=== PATIENT | female | born 1965 | race Caucasian/White ===

== ENCOUNTER 2019-02-22 07:47 | Inpatient (IN) | payer BC, MEDICAID ==
[2019-02-22] MEDS: ONDANSETRON 4 MG INJ IV ×2 (08:13→13:51)
[2019-02-22] MEDS: morphine 4 MG/ML VIAL IV (08:14)
[2019-02-22] MEDS: ACETAMINOPHEN 325 MG TAB PO (08:25)
[2019-02-22] MEDS ORDERED: CEFTRIAXONE 1 GM/50 ML (PMX) 50 ML IVPB (08:45)
[2019-02-22] MEDS: SODIUM CHLORIDE 0.9% 1L BAG IV* (08:49)
[2019-02-22] MEDS: PIPER-TAZO 3.375 GM IV (PMX) 100 ML IVPB ×3 (09:11→23:40)
[2019-02-22 09:17] LABS: ADD MAN DIFF? NO
[2019-02-22 09:19] LABS: WHITE BLOOD COUNT 13.5 10^3/ul (4.8-10.8)
[2019-02-22 09:19] LABS: BASOPHILS % 0.3 % (0.0-2.0); EOSINOPHILS % 0.3 % (0.0-7.0); HEMATOCRIT 46.4 % (37.0-47.0); HEMOGLOBIN 15.2 g/dl (12.0-16.0); LYMPHOCYTES # 2.3 10^3/ul (0.8-2.9); LYMPHOCYTES % 17.2 % (15.0-51.0); MEAN CORPUSCULAR HEMOGLOBIN 33.6 pg (29.0-33.0); MEAN CORPUSCULAR HGB CONC 32.8 g/dl (32.0-37.0); MEAN CORPUSCULAR VOLUME 102.4 fl (82.0-101.0); MEAN PLATELET VOLUME 9.1 fl (7.4-10.4); MONOCYTE # 0.6 10^3/ul (0.3-0.9); MONOCYTES % 4.2 % (0.0-11.0); NEUTROPHIL # 10.4 10^3/ul (1.6-7.5); NEUTROPHILS % 77.1 % (39.0-77.0); PLATELET COUNT 258 10^3/UL (140-415); RED BLOOD COUNT 4.53 10^6/ul (4.20-5.40); RED CELL DISTRIBUTION WIDTH 13.1 % (11.5-14.5)
[2019-02-22 09:37] LABS: ALANINE AMINOTRANSFERASE 17 IU/L (13-69); ALBUMIN 4.1 g/dl (3.3-4.9); ALBUMIN/GLOBULIN RATIO 1.32; ALKALINE PHOSPHATASE 38 IU/L (42-121); ANION GAP 8 (5-13); ASPARTATE AMINO TRANSFERASE 23 IU/L (15-46); BILIRUBIN,INDIRECT 1.1 mg/dl (0-1.1); BILIRUBIN,TOTAL 1.1 mg/dl (0.2-1.3); BLOOD UREA NITROGEN 13 mg/dl (7-20); CALCIUM 9.2 mg/dl (8.4-10.2); CARBON DIOXIDE 32 mmol/L (21-31); CHLORIDE 102 mmol/L (97-110); CREATININE 0.96 mg/dl (0.44-1.00); Estimated GFR > 60 mL/min (>60); GLUCOSE 101 mg/dl (70-220); LIPASE 126 U/L (23-300); POTASSIUM 3.8 mmol/L (3.5-5.1); SODIUM 142 mmol/L (135-144); TOTAL PROTEIN 7.2 g/dl (6.1-8.1)
[2019-02-22 09:49] LABS: TROPONIN-I < 0.012 ng/ml (0.000-0.120)
[2019-02-22] MEDS ORDERED: ACETAMINOPHEN 325 MG TAB PO (10:00)
[2019-02-22] MEDS ORDERED: ONDANSETRON 4 MG INJ IV (10:00)
[2019-02-22 11:08] LABS: LACTIC ACID 2.1 mmol/L (0.5-2.0)
[2019-02-22] MEDS ORDERED: ACETAMINOPHEN 650 MG SUPP PR (12:00)
[2019-02-22] MEDS ORDERED: NACL 0.9% 3 ML SYG IV (12:00)
[2019-02-22] MEDS: HYDROmorphONE 0.5 MG/0.5 ML SYG IV (12:27)
[2019-02-22] MEDS: SOD CHLORIDE 0.9% 1,000 ML IV ×3 (12:28→23:40)
[2019-02-22 12:45] LABS: ADD UMIC NO; UR ASCORBIC ACID NEGATIVE (NEGATIVE); UR BILIRUBIN (Dip) NEGATIVE (NEGATIVE); UR BLOOD (Dip) NEGATIVE (NEGATIVE); UR CLARITY CLEAR (CLEAR); UR COLOR STRAW (YELLOW); UR GLUCOSE (Dip) NEGATIVE (NEGATIVE); UR KETONES (Dip) NEGATIVE (NEGATIVE); UR LEUKOCYTE ESTERASE (Dip) NEGATIVE Leu/ul (NEGATIVE); UR NITRITE (Dip) NEGATIVE (NEGATIVE); UR TOTAL PROTEIN (Dip) NEGATIVE (NEGATIVE); UR UROBILINOGEN (Dip) NEGATIVE (NEGATIVE)
[2019-02-22] MEDS ORDERED: ALBUTEROL/IPRATROPIUM (NEB) 3 ML AMP HHN (13:00)
[2019-02-22] MEDS ORDERED: LORAZEPAM 2 MG INJ IV (13:00)
[2019-02-22] MEDS: MEROPENEM 1 GM/50ML(PMX) 50 ML IVPB (13:46)
[2019-02-22] MEDS: metroNIDAZOLE 500 MG/NS (PMX) 100 ML IVPB (14:52)
[2019-02-22] MEDS: NICOTINE (7 MG/24 HR) PATCH TRANSDERM (15:00)
[2019-02-22] MEDS: ACETAMINOPHEN 1000MG/100ML IV 100 ML IVPB (15:58)
[2019-02-22 16:29] LABS: LACTIC ACID 1.4 mmol/L (0.5-2.0)
[2019-02-22] MEDS: HYDROmorphONE 1 MG/ML SYG IV ×2 (17:26→22:00)
[2019-02-22 17:51] LABS: LACTIC ACID 0.8 mmol/L (0.5-2.0)
[2019-02-22 18:47] LABS: FOLATE 15.8 ng/ml (2.8-20.0)
[2019-02-22] MEDS: FAMOTIDINE 20 MG INJ IV (21:03)
[2019-02-23 00:49] LABS: LACTIC ACID 0.9 mmol/L (0.5-2.0)
[2019-02-23] MEDS: ACETAMINOPHEN 325 MG TAB PO (01:54)
[2019-02-23] MEDS ORDERED: VANCOMYCIN IV PER PHARMACY XX (02:00)
[2019-02-23 02:30] LABS: ADD MAN DIFF? NO
[2019-02-23 02:31] LABS: BASOPHIL # 0.1 10^3/ul (0.0-0.1); BASOPHILS % 0.3 % (0.0-2.0); EOSINOPHILS % 0.1 % (0.0-7.0); HEMATOCRIT 42.8 % (37.0-47.0); HEMOGLOBIN 13.8 g/dl (12.0-16.0); LYMPHOCYTES # 1.5 10^3/ul (0.8-2.9); LYMPHOCYTES % 7.8 % (15.0-51.0); MEAN CORPUSCULAR HEMOGLOBIN 33.2 pg (29.0-33.0); MEAN CORPUSCULAR HGB CONC 32.2 g/dl (32.0-37.0); MEAN CORPUSCULAR VOLUME 102.9 fl (82.0-101.0); MEAN PLATELET VOLUME 8.8 fl (7.4-10.4); MONOCYTE # 0.8 10^3/ul (0.3-0.9); MONOCYTES % 4.4 % (0.0-11.0); NEUTROPHIL # 16.6 10^3/ul (1.6-7.5); NEUTROPHILS % 86.5 % (39.0-77.0); PLATELET COUNT 210 10^3/UL (140-415); RED BLOOD COUNT 4.16 10^6/ul (4.20-5.40); RED CELL DISTRIBUTION WIDTH 13.2 % (11.5-14.5)
[2019-02-23 02:31] LABS: WHITE BLOOD COUNT 19.2 10^3/ul (4.8-10.8)
[2019-02-23 02:52] LABS: LACTIC ACID 0.9 mmol/L (0.5-2.0)
[2019-02-23 02:56] LABS: ALANINE AMINOTRANSFERASE 24 IU/L (13-69); ALBUMIN 2.9 g/dl (3.3-4.9); ALKALINE PHOSPHATASE 39 IU/L (42-121); ANION GAP 7 (5-13); ASPARTATE AMINO TRANSFERASE 19 IU/L (15-46); BILIRUBIN,INDIRECT 1.5 mg/dl (0-1.1); BILIRUBIN,TOTAL 1.5 mg/dl (0.2-1.3); BLOOD UREA NITROGEN 11 mg/dl (7-20); CALCIUM 7.8 mg/dl (8.4-10.2); CARBON DIOXIDE 24 mmol/L (21-31); CHLORIDE 106 mmol/L (97-110); CHOL/HDL RATIO 3.6 RATIO; CHOLESTEROL 145 mg/dl (100-200); CREATININE 0.81 mg/dl (0.44-1.00); Estimated GFR > 60 mL/min (>60); GLUCOSE 85 mg/dl (70-220); HDL CHOLESTEROL 40 mg/dl (37-92); LDL CHOLESTEROL,CALCULATED 87 mg/dl; MAGNESIUM 1.6 mg/dl (1.7-2.5); PHOSPHORUS 3.4 mg/dl (2.5-4.9); POTASSIUM 3.5 mmol/L (3.5-5.1); SODIUM 137 mmol/L (135-144); TOTAL PROTEIN 5.8 g/dl (6.1-8.1); TRIGLYCERIDES 89 mg/dl (0-149)
[2019-02-23] MEDS: VANCOMYCIN 1.25 GM/NS 250 ML 250 ML IVPB (02:57)
[2019-02-23 03:31] LABS: HEMOGLOBIN A1C 5.6 % (0-5.9)
[2019-02-23 03:41] LABS: PROCALCITONIN 5.08 ng/mL (0.00-0.10)
[2019-02-23] MEDS: SOD CHLORIDE 0.9% 1,000 ML IV ×4 (03:49→23:03)
[2019-02-23] MEDS: HYDROmorphONE 0.5 MG/0.5 ML SYG IV ×3 (04:31→19:04)
[2019-02-23] MEDS: PIPER-TAZO 3.375 GM IV (PMX) 100 ML IVPB ×3 (06:13→18:50)
[2019-02-23] MEDS: KETOROLAC 15 MG INJ IV (07:31)
[2019-02-23] MEDS: NICOTINE (7 MG/24 HR) PATCH TRANSDERM (08:55)
[2019-02-23] MEDS: FAMOTIDINE 20 MG INJ IV ×2 (08:55→20:18)
[2019-02-23] MEDS: predniSONE 20 MG TAB PO (08:55)
[2019-02-23] MEDS: ONDANSETRON 4 MG INJ IV ×2 (13:34→19:40)
[2019-02-23] MEDS: VANCOMYCIN 1 GM 250 ML IVPB (15:42)
[2019-02-23] MEDS: hydrALAzine 20 MG INJ IV (20:20)
[2019-02-24] MEDS: PIPER-TAZO 3.375 GM IV (PMX) 100 ML IVPB ×6 (00:10→23:52)
[2019-02-24] MEDS: ACETAMINOPHEN 325 MG TAB PO (00:17)
[2019-02-24] MEDS: VANCOMYCIN 1 GM 250 ML IVPB (03:32)
[2019-02-24 04:53] LABS: ADD MAN DIFF? NO
[2019-02-24 04:58] LABS: BASOPHIL # 0.1 10^3/ul (0.0-0.1); BASOPHILS % 0.2 % (0.0-2.0); EOSINOPHILS % 0.1 % (0.0-7.0); HEMATOCRIT 41.2 % (37.0-47.0); HEMOGLOBIN 13.1 g/dl (12.0-16.0); LYMPHOCYTES # 0.9 10^3/ul (0.8-2.9); LYMPHOCYTES % 4.2 % (15.0-51.0); MEAN CORPUSCULAR HEMOGLOBIN 33.7 pg (29.0-33.0); MEAN CORPUSCULAR HGB CONC 31.8 g/dl (32.0-37.0); MEAN CORPUSCULAR VOLUME 105.9 fl (82.0-101.0); MEAN PLATELET VOLUME 9.3 fl (7.4-10.4); MONOCYTE # 1.1 10^3/ul (0.3-0.9); MONOCYTES % 4.9 % (0.0-11.0); NEUTROPHIL # 19.8 10^3/ul (1.6-7.5); NEUTROPHILS % 88.8 % (39.0-77.0); PLATELET COUNT 140 10^3/UL (140-415); RED BLOOD COUNT 3.89 10^6/ul (4.20-5.40); RED CELL DISTRIBUTION WIDTH 13.5 % (11.5-14.5)
[2019-02-24 04:58] LABS: WHITE BLOOD COUNT 22.2 10^3/ul (4.8-10.8)
[2019-02-24 06:02] LABS: ALANINE AMINOTRANSFERASE 19 IU/L (13-69); ALBUMIN 2.8 g/dl (3.3-4.9); ALBUMIN/GLOBULIN RATIO 0.96; ALKALINE PHOSPHATASE 78 IU/L (42-121); ANION GAP 12 (5-13); ASPARTATE AMINO TRANSFERASE 28 IU/L (15-46); BILIRUBIN,INDIRECT 0.7 mg/dl (0-1.1); BILIRUBIN,TOTAL 0.7 mg/dl (0.2-1.3); BLOOD UREA NITROGEN 13 mg/dl (7-20); CARBON DIOXIDE 14 mmol/L (21-31); CHLORIDE 114 mmol/L (97-110); CREATININE 1.17 mg/dl (0.44-1.00); Estimated GFR 48 mL/min (>60); GLUCOSE 83 mg/dl (70-220); POTASSIUM 3.6 mmol/L (3.5-5.1); SODIUM 140 mmol/L (135-144); TOTAL PROTEIN 5.7 g/dl (6.1-8.1)
[2019-02-24] MEDS: METOPROLOL 25 MG TAB PO (08:15)
[2019-02-24] MEDS: HYDROmorphONE 0.5 MG/0.5 ML SYG IV ×2 (08:15→14:12)
[2019-02-24] MEDS: FAMOTIDINE 20 MG INJ IV ×2 (08:15→21:28)
[2019-02-24] MEDS: ONDANSETRON 4 MG INJ IV ×3 (08:22→19:03)
[2019-02-24] MEDS: NICOTINE (7 MG/24 HR) PATCH TRANSDERM (09:00)
[2019-02-24] MEDS: FLUCONAZOLE 200 MG TAB PO ×2 (10:00→12:19)
[2019-02-24] MEDS: predniSONE 20 MG TAB PO (10:26)
[2019-02-24] MEDS: SOD CHLORIDE 0.9% 1,000 ML IV (10:27)
[2019-02-24] MEDS: KETOROLAC 15 MG INJ IV (11:18)
[2019-02-24] MEDS: SOD CHLORIDE 0.9% 500 ML IV (12:19)
[2019-02-24] MEDS: METHYLPREDNISOLONE 40 MG INJ IV (13:39)
[2019-02-24] MEDS: DEXTROSE 5%-0.45% NACL 1,000 ML IV ×2 (15:26→21:30)
[2019-02-24] MEDS ORDERED: MIDAZOLAM 1 MG/ML 2 ML INJ (16:55)
[2019-02-24] MEDS ORDERED: ROCURONIUM 50 MG INJ (16:55)
[2019-02-24] MEDS ORDERED: ONDANSETRON 4 MG INJ (16:55)
[2019-02-24] MEDS ORDERED: PROPOFOL 20 ML (16:55)
[2019-02-24] MEDS ORDERED: HYDROCORTISONE 100 MG INJ (16:56)
[2019-02-24] MEDS ORDERED: hydrALAzine 20 MG INJ IV (17:00)
[2019-02-24] MEDS ORDERED: DIPHENHYDRAMINE 50 MG INJ IV ×2 (17:00→18:00)
[2019-02-24] MEDS ORDERED: HYDROmorphONE 1 MG/5 ML IV SYRINGE IV ×3 (17:00)
[2019-02-24] MEDS ORDERED: FENTAnyl 50 MCG/ML VIAL IV ×3 (17:00)
[2019-02-24] MEDS ORDERED: KETOROLAC 30 MG INJ IV ×2 (17:00→18:00)
[2019-02-24] MEDS ORDERED: LABETALOL HCL 20MG INJ IV (17:00)
[2019-02-24] MEDS ORDERED: HYDROCODONE/APAP (5/325) TAB PO (18:00)
[2019-02-24] MEDS ORDERED: ONDANSETRON 4 MG INJ IV (18:00)
[2019-02-24] MEDS ORDERED: HYDROmorphONE 1 MG/ML SYG IV (18:00)
[2019-02-24] MEDS ORDERED: NALOXONE (0.4 MG/ML) INJ IV (18:00)
[2019-02-24] MEDS ORDERED: HYDROmorphONE 0.5 MG/0.5 ML SYG IV (18:00)
[2019-02-24] MEDS ORDERED: NEOSTIGMINE 3 MG/3 ML SYRINGE (18:17)
[2019-02-24] MEDS ORDERED: GLYCOPYRROLATE 0.4 MG INJ (18:17)
[2019-02-24] MEDS ORDERED: SUGAMMADEX SODIUM 200 MG/2 ML VIAL IV (18:19)
[2019-02-24] MEDS ORDERED: METOPROLOL 5 MG INJ (18:19)
[2019-02-24] MEDS ORDERED: OXYCODONE/ACETAMINOPHEN (5/325) TAB PO (18:30)
[2019-02-24] MEDS: ROPIVACAINE 0.2% 100ML BAG EPI (18:37)
[2019-02-24] MEDS: MEPERIDINE 25 MG INJ IV (19:03)
[2019-02-24] MEDS ORDERED: ACETAMINOPHEN 500 MG TAB PO (20:00)
[2019-02-24] MEDS: HYDROCORTISONE 100 MG INJ IV (21:28)
[2019-02-24] MEDS: hydrALAzine 20 MG INJ IV (21:29)
[2019-02-25] MEDS: ROPIVACAINE 0.2% 100ML BAG EPI (01:33)
[2019-02-25] MEDS: DEXTROSE 5%-0.45% NACL 1,000 ML IV ×3 (03:52→20:12)
[2019-02-25] MEDS: HYDROCORTISONE 100 MG INJ IV ×3 (05:24→21:15)
[2019-02-25] MEDS: PIPER-TAZO 3.375 GM IV (PMX) 100 ML IVPB ×4 (05:24→23:58)
[2019-02-25] MEDS: KETOROLAC 15 MG INJ IV (05:25)
[2019-02-25 05:54] LABS: WHITE BLOOD COUNT 17.4 10^3/ul (4.8-10.8)
[2019-02-25 05:54] LABS: ABNORMAL IP MESSAGE 1; HEMATOCRIT 37.4 % (37.0-47.0); HEMOGLOBIN 12.3 g/dl (12.0-16.0); MEAN CORPUSCULAR HEMOGLOBIN 33.2 pg (29.0-33.0); MEAN CORPUSCULAR HGB CONC 32.9 g/dl (32.0-37.0); MEAN CORPUSCULAR VOLUME 101.1 fl (82.0-101.0); MEAN PLATELET VOLUME 9.8 fl (7.4-10.4); PLATELET COUNT 132 10^3/UL (140-415); RED CELL DISTRIBUTION WIDTH 13.6 % (11.5-14.5)
[2019-02-25 06:15] LABS: ADD MAN DIFF? YES; POSITIVE DIFF @See below
[2019-02-25 06:20] LABS: ALANINE AMINOTRANSFERASE 17 IU/L (13-69); ALBUMIN 2.9 g/dl (3.3-4.9); ALBUMIN/GLOBULIN RATIO 0.96; ALKALINE PHOSPHATASE 78 IU/L (42-121); ANION GAP 7 (5-13); ASPARTATE AMINO TRANSFERASE 24 IU/L (15-46); BILIRUBIN,INDIRECT 0.5 mg/dl (0-1.1); BILIRUBIN,TOTAL 0.5 mg/dl (0.2-1.3); BLOOD UREA NITROGEN 16 mg/dl (7-20); CALCIUM 8.1 mg/dl (8.4-10.2); CARBON DIOXIDE 19 mmol/L (21-31); CHLORIDE 113 mmol/L (97-110); CREATININE 0.99 mg/dl (0.44-1.00); Estimated GFR 58 mL/min (>60); GLUCOSE 235 mg/dl (70-220); POTASSIUM 3.4 mmol/L (3.5-5.1); SODIUM 139 mmol/L (135-144); TOTAL PROTEIN 5.9 g/dl (6.1-8.1)
[2019-02-25] MEDS ORDERED: LIDOCAINE 1%/EPI 30 ML INJ (07:50)
[2019-02-25] MEDS ORDERED: DIPHENHYDRAMINE 50 MG INJ IV (08:00)
[2019-02-25] MEDS ORDERED: ONDANSETRON 4 MG INJ IV (08:00)
[2019-02-25] MEDS ORDERED: HYDROmorphONE 1 MG/ML SYG IV (08:00)
[2019-02-25] MEDS ORDERED: NALOXONE (0.4 MG/ML) INJ IV (08:00)
[2019-02-25] MEDS ORDERED: ACETAMINOPHEN 500 MG TAB PO (08:00)
[2019-02-25] MEDS ORDERED: HYDROmorphONE 0.5 MG/0.5 ML SYG IV ×2 (08:00)
[2019-02-25] MEDS: FENTAnyl 2MCG/ML-ROPIV 0.2% 100 ML BAG EPI ×3 (08:15→21:10)
[2019-02-25] MEDS: NICOTINE (7 MG/24 HR) PATCH TRANSDERM (09:00)
[2019-02-25] MEDS: FAMOTIDINE 20 MG INJ IV ×2 (09:25→20:10)
[2019-02-25] MEDS: FLUCONAZOLE 200 MG TAB PO (09:26)
[2019-02-25] MEDS: CELECOXIB 200 MG CAP PO (09:26)
[2019-02-25] MEDS: METOPROLOL 25 MG TAB PO (09:26)
[2019-02-25] MEDS: hydrALAzine 20 MG INJ IV ×2 (09:32→16:49)
[2019-02-25] MEDS: ALBUTEROL/IPRATROPIUM (NEB) 3 ML AMP HHN ×3 (09:43→19:27)
[2019-02-25 09:46] LABS: BAND NEUTROPHILS #M 3.8 10^3/ul (0.0-0.6); BAND NEUTROPHILS % (M) 22 % (0-4); GIANT THROMBO% (M) 1 % (0-0); LYMPHOCYTES #M 0.1 10^3/ul (0.8-2.9); LYMPHOCYTES % (M) 1 % (15-51); MONOCYTE #M 0.1 10^3/ul (0.3-0.9); MONOCYTES % (M) 1 % (0-11); PLATELET ESTIMATE NORMAL; POIKILOCYTOSIS 1+ (0-0); SEG NEUT #M 13.9 10^3/ul (1.6-7.5); SEGMENTED NEUTROPHILS (M) % 76 % (39-77); SMUDGE%M 15 % (0-0)
[2019-02-25 11:30] LABS: TROPONIN-I 0.091 ng/ml (0.000-0.120)
[2019-02-25] MEDS ORDERED: LORAZEPAM 0.5 MG TAB PO (11:30)
[2019-02-25] MEDS: GABAPENTIN 100 MG CAP PO ×2 (12:03→20:11)
[2019-02-25] MEDS: BENAZEPRIL 10 MG TAB PO (12:14)
[2019-02-25] MEDS: AMLODIPINE 2.5 MG TAB PO (12:14)
[2019-02-25 14:22] LABS: B-TYPE NATRIURETIC PEPTIDE 3370 PG/ML (0-125)
[2019-02-25] MEDS: ERGOCALCIFEROL 50,000 UNIT CAP PO (14:29)
[2019-02-25] MEDS: FUROSEMIDE 20 MG INJ IV (14:30)
[2019-02-25] MEDS: ACETAMINOPHEN 325 MG TAB PO (16:49)
[2019-02-25 17:06] LABS: AADO2 Arterial 165.3 mmHg (7.0-24.0); Allen Test ACCEPTAB; Arterial Base Excess -6.8 mmol/L (-3.0-3); Arterial Blood Gas Oxygen Sat 90.3 mmHG (95.0-98.0); Arterial COHb 0.2 % (0.0-3.0); Arterial Fraction of Oxyhgb 89.9 % (93.0-99.0); Arterial HCO3 16.3 mmol/L (22.0-26.0); Arterial MetHb 0.2 % (0.0-1.5); Arterial pCO2 26.3 mmhg (35-45); MODE NASAL CANNULA; Site Left Radial
[2019-02-25 17:14] LABS: PLATELET COUNT 168 10^3/UL (140-415)
[2019-02-25 17:28] LABS: INR 1.03; PROTIME 13.6 Sec (11.9-14.9); PT RATIO 1.1
[2019-02-25 17:29] LABS: PARTIAL THROMBOPLASTIN TIME 27.5 Sec (23.0-35.0); THROMBIN TIME 13.8 SEC (13.8-19.1)
[2019-02-25] MEDS: POTASSIUM CHLORIDE 20 MEQ POWDER FOR ORAL SOLN PO ×2 (18:29→18:35)
[2019-02-25] MEDS: BUDESONIDE (NEB) 0.5MG/2ML AMP HHN (19:27)
[2019-02-25 19:28] LABS: LACTIC ACID 2.4 mmol/L (0.5-2.0)
[2019-02-25] MEDS: POTASSIUM CHLORIDE (SR) 20 MEQ TAB PO (19:51)
[2019-02-25] MEDS: ATORVASTATIN 40 MG TAB PO (20:10)
[2019-02-25] MEDS: CYCLOSPORINE 0.05% OPH DROPERETTE BOTH EYES (21:15)
[2019-02-25 22:33] LABS: AADO2 Arterial 563.3 mmHg (7.0-24.0); Allen Test ACCEPTAB; Arterial Base Excess -5.2 mmol/L (-3.0-3); Arterial Blood Gas Oxygen Sat 98.4 mmHG (95.0-98.0); Arterial COHb 0.3 % (0.0-3.0); Arterial Fraction of Oxyhgb 97.9 % (93.0-99.0); Arterial HCO3 17.8 mmol/L (22.0-26.0); Arterial MetHb 0.2 % (0.0-1.5); MODE HFNC; Site Right Radial
[2019-02-26 02:40] LABS: LACTIC ACID 2.2 mmol/L (0.5-2.0)
[2019-02-26] MEDS: hydrALAzine 20 MG INJ IV ×3 (04:47→20:33)
[2019-02-26] MEDS: FENTAnyl 2MCG/ML-ROPIV 0.2% 100 ML BAG EPI (04:51)
[2019-02-26] MEDS: PIPER-TAZO 3.375 GM IV (PMX) 100 ML IVPB ×3 (05:30→17:53)
[2019-02-26] MEDS: PANTOPRAZOLE (EC) 40 MG TAB PO (05:31)
[2019-02-26] MEDS: HYDROCORTISONE 100 MG INJ IV ×3 (05:31→22:27)
[2019-02-26 05:58] LABS: WHITE BLOOD COUNT 22.8 10^3/ul (4.8-10.8)
[2019-02-26 05:58] LABS: ABNORMAL IP MESSAGE 1; HEMATOCRIT 35.1 % (37.0-47.0); HEMOGLOBIN 11.8 g/dl (12.0-16.0); MEAN CORPUSCULAR HEMOGLOBIN 33.1 pg (29.0-33.0); MEAN CORPUSCULAR HGB CONC 33.6 g/dl (32.0-37.0); MEAN CORPUSCULAR VOLUME 98.3 fl (82.0-101.0); MEAN PLATELET VOLUME 9.8 fl (7.4-10.4); PLATELET COUNT 176 10^3/UL (140-415); RED BLOOD COUNT 3.57 10^6/ul (4.20-5.40); RED CELL DISTRIBUTION WIDTH 13.6 % (11.5-14.5)
[2019-02-26 06:07] LABS: ADD MAN DIFF? YES; POSITIVE DIFF @See below
[2019-02-26 06:12] LABS: INR 1.02; PROTIME 13.5 Sec (11.9-14.9); PT RATIO 1.1
[2019-02-26 06:13] LABS: PARTIAL THROMBOPLASTIN TIME 26.7 Sec (23.0-35.0)
[2019-02-26 06:18] LABS: ALANINE AMINOTRANSFERASE 21 IU/L (13-69); ALBUMIN/GLOBULIN RATIO 0.96; ALKALINE PHOSPHATASE 86 IU/L (42-121); ANION GAP 6 (5-13); ASPARTATE AMINO TRANSFERASE 26 IU/L (15-46); BILIRUBIN,INDIRECT 0.5 mg/dl (0-1.1); BILIRUBIN,TOTAL 0.5 mg/dl (0.2-1.3); BLOOD UREA NITROGEN 16 mg/dl (7-20); CALCIUM 8.6 mg/dl (8.4-10.2); CARBON DIOXIDE 24 mmol/L (21-31); CHLORIDE 110 mmol/L (97-110); CREATININE 1.14 mg/dl (0.44-1.00); Estimated GFR 49 mL/min (>60); GLUCOSE 159 mg/dl (70-220); POTASSIUM 3.7 mmol/L (3.5-5.1); SODIUM 140 mmol/L (135-144); TOTAL PROTEIN 6.1 g/dl (6.1-8.1)
[2019-02-26 07:31] LABS: BAND NEUTROPHILS #M 5.7 10^3/ul (0.0-0.6); BAND NEUTROPHILS % (M) 25 % (0-4); LYMPHOCYTES #M 0.6 10^3/ul (0.8-2.9); LYMPHOCYTES % (M) 3 % (15-51); MONOCYTE #M 0.6 10^3/ul (0.3-0.9); MONOCYTES % (M) 3 % (0-11); PLATELET ESTIMATE NORMAL; POIKILOCYTOSIS 1+ (0-0); REACTIVE LYMPHOCYTES #M 0.6 10^3/ul (0.0-0.0); REACTIVE LYMPHOCYTES% (M) 3 % (0-0); SEG NEUT #M 16.3 10^3/ul (1.6-7.5); SEGMENTED NEUTROPHILS (M) % 66 % (39-77); SMUDGE%M 4 % (0-0)
[2019-02-26 07:33] LABS: AADO2 Arterial 590.1 mmHg (7.0-24.0); Allen Test ACCEPTAB; Arterial Base Excess -4.9 mmol/L (-3.0-3); Arterial Blood Gas Oxygen Sat 97.2 mmHG (95.0-98.0); Arterial COHb 0.3 % (0.0-3.0); Arterial Fraction of Oxyhgb 96.7 % (93.0-99.0); Arterial HCO3 18.8 mmol/L (22.0-26.0); Arterial MetHb 0.2 % (0.0-1.5); MODE HFNC; Site Right Radial
[2019-02-26] MEDS: BUDESONIDE (NEB) 0.5MG/2ML AMP HHN ×2 (07:55→19:40)
[2019-02-26] MEDS: ALBUTEROL/IPRATROPIUM (NEB) 3 ML AMP HHN ×3 (07:56→19:40)
[2019-02-26 08:40] LABS: PROCALCITONIN 4.75 ng/mL (0.00-0.10)
[2019-02-26] MEDS: NICOTINE (7 MG/24 HR) PATCH TRANSDERM (09:00)
[2019-02-26] MEDS: GABAPENTIN 100 MG CAP PO (09:00)
[2019-02-26] MEDS: FLUCONAZOLE 200 MG TAB PO (09:01)
[2019-02-26] MEDS: CELECOXIB 200 MG CAP PO (09:02)
[2019-02-26] MEDS: FAMOTIDINE 20 MG INJ IV ×2 (09:03→20:33)
[2019-02-26] MEDS: FENOFIBRATE 145 MG TAB PO (09:03)
[2019-02-26] MEDS: CYCLOSPORINE 0.05% OPH DROPERETTE BOTH EYES ×2 (09:03→20:33)
[2019-02-26] MEDS: METOPROLOL (XL) 50 MG TAB PO (09:04)
[2019-02-26] MEDS: DEXTROSE 5%-0.45% NACL 1,000 ML IV ×3 (09:20→22:28)
[2019-02-26] MEDS: BENAZEPRIL 10 MG TAB PO (09:48)
[2019-02-26] MEDS: AMLODIPINE 2.5 MG TAB PO (09:48)
[2019-02-26] MEDS: LIDOCAINE 1% (MPF) 5 ML VIAL (14:34)
[2019-02-26 15:36] LABS: FLD MN% 10.3 %; FLD PMN% 89.7 %; FLD RBC 1000 /uL; FLD WBC 749 /cmm
[2019-02-26 15:50] LABS: FLUID TYPE THORACENTESIS FLUID
[2019-02-26 15:51] LABS: FLUID TYPE THORACENTESIS FLUID
[2019-02-26 16:02] LABS: FLUID LD 699 U/L
[2019-02-26 16:03] LABS: FLUID GLUCOSE 136 mg/dl; FLUID TOTAL PROTEIN < 2.0 g/dl
[2019-02-26 16:13] LABS: FLD CLARITY SLIGHTLY HAZY; FLD COLOR YELLOW
[2019-02-26 16:13] LABS: FLD TYPE THORACENTHESIS
[2019-02-26] MEDS: SPIRONOLACTONE 25 MG TAB PO (20:08)
[2019-02-26] MEDS: ATORVASTATIN 40 MG TAB PO (20:08)
[2019-02-26] MEDS: morphine 2 MG INJ IV (21:19)
[2019-02-26] MEDS: FUROSEMIDE 20 MG INJ IV (21:22)
[2019-02-26] MEDS: ONDANSETRON 4 MG INJ IV (21:30)
[2019-02-27] MEDS: PIPER-TAZO 3.375 GM IV (PMX) 100 ML IVPB ×5 (00:04→23:39)
[2019-02-27] MEDS: ALBUTEROL/IPRATROPIUM (NEB) 3 ML AMP HHN ×4 (01:14→19:58)
[2019-02-27 05:28] LABS: ADD MAN DIFF? NO
[2019-02-27] MEDS: PANTOPRAZOLE (EC) 40 MG TAB PO (05:29)
[2019-02-27] MEDS: HYDROCORTISONE 100 MG INJ IV ×3 (05:29→21:22)
[2019-02-27 05:30] LABS: BASOPHILS % 0.2 % (0.0-2.0); HEMATOCRIT 31.1 % (37.0-47.0); HEMOGLOBIN 10.5 g/dl (12.0-16.0); LYMPHOCYTES # 0.6 10^3/ul (0.8-2.9); LYMPHOCYTES % 3.1 % (15.0-51.0); MEAN CORPUSCULAR HEMOGLOBIN 33.5 pg (29.0-33.0); MEAN CORPUSCULAR HGB CONC 33.8 g/dl (32.0-37.0); MEAN CORPUSCULAR VOLUME 99.4 fl (82.0-101.0); MEAN PLATELET VOLUME 9.6 fl (7.4-10.4); MONOCYTE # 1.3 10^3/ul (0.3-0.9); MONOCYTES % 6.5 % (0.0-11.0); NEUTROPHIL # 18.3 10^3/ul (1.6-7.5); NEUTROPHILS % 88.7 % (39.0-77.0); PLATELET COUNT 185 10^3/UL (140-415); RED BLOOD COUNT 3.13 10^6/ul (4.20-5.40)
[2019-02-27 05:30] LABS: WHITE BLOOD COUNT 20.6 10^3/ul (4.8-10.8)
[2019-02-27 05:54] LABS: LACTIC ACID 0.9 mmol/L (0.5-2.0)
[2019-02-27 05:55] LABS: MAGNESIUM 2.1 mg/dl (1.7-2.5)
[2019-02-27 05:58] LABS: ANION GAP 2 (5-13); BILIRUBIN,TOTAL 0.5 mg/dl (0.2-1.3); Estimated GFR 54 mL/min (>60)
[2019-02-27 06:02] LABS: ALANINE AMINOTRANSFERASE 19 IU/L (13-69); ALBUMIN 2.4 g/dl (3.3-4.9); ALKALINE PHOSPHATASE 86 IU/L (42-121); ASPARTATE AMINO TRANSFERASE 31 IU/L (15-46); BILIRUBIN,INDIRECT 0.5 mg/dl (0-1.1); BLOOD UREA NITROGEN 18 mg/dl (7-20); CALCIUM 8.2 mg/dl (8.4-10.2); CARBON DIOXIDE 27 mmol/L (21-31); CHLORIDE 110 mmol/L (97-110); CREATININE 1.06 mg/dl (0.44-1.00); GLUCOSE 157 mg/dl (70-220); POTASSIUM 3.2 mmol/L (3.5-5.1); SODIUM 139 mmol/L (135-144); TOTAL PROTEIN 5.4 g/dl (6.1-8.1)
[2019-02-27 07:31] LABS: PROCALCITONIN 2.92 ng/mL (0.00-0.10)
[2019-02-27] MEDS: POTASSIUM CHLORIDE (SR) 20 MEQ TAB PO ×2 (08:33→12:21)
[2019-02-27] MEDS: BUDESONIDE (NEB) 0.5MG/2ML AMP HHN ×2 (08:34→19:58)
[2019-02-27] MEDS: CELECOXIB 200 MG CAP PO (08:50)
[2019-02-27] MEDS: FLUCONAZOLE 200 MG TAB PO (08:50)
[2019-02-27] MEDS: FENOFIBRATE 145 MG TAB PO (08:50)
[2019-02-27] MEDS: CYCLOSPORINE 0.05% OPH DROPERETTE BOTH EYES ×2 (08:50→21:22)
[2019-02-27] MEDS: METOPROLOL (XL) 50 MG TAB PO (08:51)
[2019-02-27] MEDS: NICOTINE (7 MG/24 HR) PATCH TRANSDERM (08:55)
[2019-02-27] MEDS: SPIRONOLACTONE 25 MG TAB PO (09:42)
[2019-02-27] MEDS: AMLODIPINE 2.5 MG TAB PO (09:42)
[2019-02-27] MEDS: FAMOTIDINE 20 MG INJ IV (09:42)
[2019-02-27] MEDS: BENAZEPRIL 10 MG TAB PO (09:43)
[2019-02-27] MEDS ORDERED: FUROSEMIDE 40 MG INJ IV (10:00)
[2019-02-27] MEDS: FUROSEMIDE 20 MG INJ IV ×2 (10:24→18:15)
[2019-02-27] MEDS: ATORVASTATIN 40 MG TAB PO (21:22)
[2019-02-27] MEDS: HYDROmorphONE 0.5 MG/0.5 ML SYG IV (21:23)
[2019-02-27] MEDS: ONDANSETRON 4 MG INJ IV (21:29)
[2019-02-28] MEDS: ALBUTEROL/IPRATROPIUM (NEB) 3 ML AMP HHN ×4 (01:30→20:23)
[2019-02-28] MEDS: HYDROCORTISONE 100 MG INJ IV ×3 (05:38→21:09)
[2019-02-28] MEDS: PANTOPRAZOLE (EC) 40 MG TAB PO (05:38)
[2019-02-28] MEDS: FUROSEMIDE 20 MG INJ IV ×2 (05:38→18:17)
[2019-02-28] MEDS: PIPER-TAZO 3.375 GM IV (PMX) 100 ML IVPB ×3 (05:39→18:15)
[2019-02-28 05:52] LABS: ADD MAN DIFF? NO
[2019-02-28 06:05] LABS: WHITE BLOOD COUNT 16.3 10^3/ul (4.8-10.8)
[2019-02-28 06:05] LABS: BASOPHILS % 0.2 % (0.0-2.0); EOSINOPHILS % 0.1 % (0.0-7.0); HEMATOCRIT 31.9 % (37.0-47.0); HEMOGLOBIN 10.5 g/dl (12.0-16.0); LYMPHOCYTES # 1.3 10^3/ul (0.8-2.9); MEAN CORPUSCULAR HEMOGLOBIN 32.6 pg (29.0-33.0); MEAN CORPUSCULAR HGB CONC 32.9 g/dl (32.0-37.0); MEAN CORPUSCULAR VOLUME 99.1 fl (82.0-101.0); MEAN PLATELET VOLUME 9.8 fl (7.4-10.4); MONOCYTE # 1.3 10^3/ul (0.3-0.9); MONOCYTES % 8.2 % (0.0-11.0); NEUTROPHIL # 13.1 10^3/ul (1.6-7.5); NEUTROPHILS % 80.3 % (39.0-77.0); PLATELET COUNT 252 10^3/UL (140-415); RED BLOOD COUNT 3.22 10^6/ul (4.20-5.40); RED CELL DISTRIBUTION WIDTH 13.8 % (11.5-14.5)
[2019-02-28 06:25] LABS: MAGNESIUM 1.9 mg/dl (1.7-2.5)
[2019-02-28 06:28] LABS: ANION GAP 1 (5-13); BLOOD UREA NITROGEN 27 mg/dl (7-20); CALCIUM 8.4 mg/dl (8.4-10.2); CARBON DIOXIDE 32 mmol/L (21-31); CHLORIDE 106 mmol/L (97-110); CREATININE 1.07 mg/dl (0.44-1.00); Estimated GFR 53 mL/min (>60); GLUCOSE 118 mg/dl (70-220); SODIUM 139 mmol/L (135-144)
[2019-02-28 06:30] LABS: B-TYPE NATRIURETIC PEPTIDE 3090 PG/ML (0-125)
[2019-02-28 06:31] LABS: POTASSIUM 2.9 mmol/L (3.5-5.1)
[2019-02-28 08:00] LABS: AADO2 Arterial 242.3 mmHg (7.0-24.0); Allen Test ACCEPTAB; Arterial Base Excess 4.2 mmol/L (-3.0-3); Arterial Blood Gas Oxygen Sat 95.6 mmHG (95.0-98.0); Arterial COHb 0.3 % (0.0-3.0); Arterial Fraction of Oxyhgb 95.1 % (93.0-99.0); Arterial HCO3 27.1 mmol/L (22.0-26.0); Arterial MetHb 0.2 % (0.0-1.5); Arterial pCO2 34.6 mmhg (35-45); MODE HFNC; Site Right Radial
[2019-02-28] MEDS: POTASSIUM CHLORIDE 100 ML IVPB ×2 (08:19→11:12)
[2019-02-28] MEDS: CYCLOSPORINE 0.05% OPH DROPERETTE BOTH EYES ×2 (08:23→20:48)
[2019-02-28] MEDS: FENOFIBRATE 145 MG TAB PO (08:23)
[2019-02-28] MEDS: AMLODIPINE 2.5 MG TAB PO (08:24)
[2019-02-28] MEDS: FLUCONAZOLE 200 MG TAB PO (08:25)
[2019-02-28] MEDS: BENAZEPRIL 10 MG TAB PO (08:26)
[2019-02-28] MEDS: NICOTINE (7 MG/24 HR) PATCH TRANSDERM (08:26)
[2019-02-28] MEDS: BUDESONIDE (NEB) 0.5MG/2ML AMP HHN ×2 (09:00→20:23)
[2019-02-28] MEDS: POTASSIUM CHLORIDE (SR) 20 MEQ TAB PO ×2 (09:01→20:48)
[2019-02-28] MEDS: METOPROLOL (XL) 25 MG TAB PO (09:03)
[2019-02-28] MEDS: SPIRONOLACTONE 25 MG TAB PO ×2 (09:05→09:07)
[2019-02-28] MEDS: MAGNESIUM SULFATE 2 GM/50 ML 50 ML IVPB (09:44)
[2019-02-28] MEDS: ATORVASTATIN 40 MG TAB PO (20:48)
[2019-02-28] MEDS: OXYCODONE/ACETAMINOPHEN (5/325) TAB PO (21:09)
[2019-03-01] MEDS: PIPER-TAZO 3.375 GM IV (PMX) 100 ML IVPB ×4 (00:22→19:38)
[2019-03-01] MEDS: ALBUTEROL/IPRATROPIUM (NEB) 3 ML AMP HHN ×4 (01:09→20:19)
[2019-03-01 06:25] LABS: ABNORMAL IP MESSAGE 1; HEMATOCRIT 33.6 % (37.0-47.0); MEAN CORPUSCULAR HEMOGLOBIN 32.4 pg (29.0-33.0); MEAN CORPUSCULAR HGB CONC 32.7 g/dl (32.0-37.0); MEAN CORPUSCULAR VOLUME 99.1 fl (82.0-101.0); MEAN PLATELET VOLUME 9.7 fl (7.4-10.4); PLATELET COUNT 335 10^3/UL (140-415); RED BLOOD COUNT 3.39 10^6/ul (4.20-5.40); RED CELL DISTRIBUTION WIDTH 13.7 % (11.5-14.5)
[2019-03-01 06:29] LABS: ADD MAN DIFF? YES; POSITIVE DIFF @See below
[2019-03-01 06:38] LABS: ALANINE AMINOTRANSFERASE 37 IU/L (13-69); ALBUMIN 2.3 g/dl (3.3-4.9); ALBUMIN/GLOBULIN RATIO 0.95; ALKALINE PHOSPHATASE 65 IU/L (42-121); ANION GAP 3 (5-13); ASPARTATE AMINO TRANSFERASE 31 IU/L (15-46); BILIRUBIN,INDIRECT 0.5 mg/dl (0-1.1); BILIRUBIN,TOTAL 0.5 mg/dl (0.2-1.3); BLOOD UREA NITROGEN 28 mg/dl (7-20); CARBON DIOXIDE 36 mmol/L (21-31); CHLORIDE 101 mmol/L (97-110); CREATININE 0.97 mg/dl (0.44-1.00); Estimated GFR 60 mL/min (>60); GLUCOSE 149 mg/dl (70-220); MAGNESIUM 2.3 mg/dl (1.7-2.5); POTASSIUM 3.3 mmol/L (3.5-5.1); SODIUM 140 mmol/L (135-144); TOTAL PROTEIN 4.7 g/dl (6.1-8.1)
[2019-03-01] MEDS: PANTOPRAZOLE (EC) 40 MG TAB PO (06:39)
[2019-03-01] MEDS: HYDROCORTISONE 100 MG INJ IV ×3 (06:39→21:05)
[2019-03-01] MEDS: FUROSEMIDE 20 MG INJ IV ×2 (06:40→19:39)
[2019-03-01 07:08] LABS: THYROID STIMULATING HORMONE 0.527 MIU/L (0.465-4.680)
[2019-03-01] MEDS: BUDESONIDE (NEB) 0.5MG/2ML AMP HHN ×2 (08:07→20:19)
[2019-03-01] MEDS: SPIRONOLACTONE 25 MG TAB PO (10:39)
[2019-03-01] MEDS: NICOTINE (7 MG/24 HR) PATCH TRANSDERM (10:39)
[2019-03-01] MEDS: DOCUSATE SODIUM 10 MG/ML (10ML CUP) PO (10:40)
[2019-03-01] MEDS: METOPROLOL (XL) 25 MG TAB PO (10:40)
[2019-03-01] MEDS: POTASSIUM CHLORIDE (SR) 20 MEQ TAB PO ×2 (10:40→14:23)
[2019-03-01] MEDS: BENAZEPRIL 10 MG TAB PO (10:41)
[2019-03-01] MEDS: FLUCONAZOLE 200 MG TAB PO (10:41)
[2019-03-01] MEDS: AMLODIPINE 2.5 MG TAB PO (10:41)
[2019-03-01] MEDS: FENOFIBRATE 145 MG TAB PO (10:41)
[2019-03-01] MEDS: CYCLOSPORINE 0.05% OPH DROPERETTE BOTH EYES ×2 (10:41→21:04)
[2019-03-01 10:56] LABS: BAND NEUTROPHILS #M 0.3 10^3/ul (0.0-0.6); BAND NEUTROPHILS % (M) 3 % (0-4); LYMPHOCYTES #M 0.9 10^3/ul (0.8-2.9); LYMPHOCYTES % (M) 7 % (15-51); METAMYELOCYTES #M 0.1 10^3/ul (0.0-0.0); METAMYELOCYTES %M 1 % (0-0); MONOCYTES % (M) 8 % (0-11); MYELOCYTES #M 0.2 10^3/ul (0.0-0.0); MYELOCYTES % (M) 2 % (0-0); PLATELET ESTIMATE NORMAL; POIKILOCYTOSIS 1+ (0-0); POLYCHROMASIA 1+ (0-0); REACTIVE LYMPHOCYTES #M 0.3 10^3/ul (0.0-0.0); REACTIVE LYMPHOCYTES% (M) 3 % (0-0); SEG NEUT #M 9.9 10^3/ul (1.6-7.5); SEGMENTED NEUTROPHILS (M) % 76 % (39-77); SMUDGE%M 16 % (0-0); TOXIC GRANULATION 1+ (0-0)
[2019-03-01] MEDS: ENOXAPARIN 40 MG/0.4 ML SYG SC (11:07)
[2019-03-01 19:05] LABS: HEMATOCRIT 35.1 % (37.0-47.0); HEMOGLOBIN 11.8 g/dl (12.0-16.0)
[2019-03-01] MEDS: ATORVASTATIN 40 MG TAB PO (21:04)
[2019-03-02] MEDS: PIPER-TAZO 3.375 GM IV (PMX) 100 ML IVPB ×5 (00:22→23:54)
[2019-03-02 01:00] LABS: HEMATOCRIT 34.5 % (37.0-47.0); HEMOGLOBIN 11.6 g/dl (12.0-16.0)
[2019-03-02] MEDS: ALBUTEROL/IPRATROPIUM (NEB) 3 ML AMP HHN ×4 (01:46→20:32)
[2019-03-02 06:10] LABS: ADD MAN DIFF? NO
[2019-03-02 06:19] LABS: ABNORMAL IP MESSAGE 1; HEMATOCRIT 34.7 % (37.0-47.0); HEMOGLOBIN 11.7 g/dl (12.0-16.0); MEAN CORPUSCULAR HEMOGLOBIN 33.1 pg (29.0-33.0); MEAN CORPUSCULAR HGB CONC 33.7 g/dl (32.0-37.0); MEAN PLATELET VOLUME 9.6 fl (7.4-10.4); PLATELET COUNT 429 10^3/UL (140-415); RED BLOOD COUNT 3.54 10^6/ul (4.20-5.40); RED CELL DISTRIBUTION WIDTH 13.3 % (11.5-14.5)
[2019-03-02 06:19] LABS: WHITE BLOOD COUNT 14.6 10^3/ul (4.8-10.8)
[2019-03-02 06:48] LABS: ALANINE AMINOTRANSFERASE 33 IU/L (13-69); ALBUMIN 2.7 g/dl (3.3-4.9); ALKALINE PHOSPHATASE 63 IU/L (42-121); ASPARTATE AMINO TRANSFERASE 31 IU/L (15-46); BILIRUBIN,INDIRECT 0.5 mg/dl (0-1.1); BILIRUBIN,TOTAL 0.5 mg/dl (0.2-1.3); BLOOD UREA NITROGEN 27 mg/dl (7-20); CALCIUM 8.1 mg/dl (8.4-10.2); CHLORIDE 95 mmol/L (97-110); CREATININE 1.03 mg/dl (0.44-1.00); Estimated GFR 56 mL/min (>60); GLUCOSE 157 mg/dl (70-220); SODIUM 139 mmol/L (135-144); TOTAL PROTEIN 5.7 g/dl (6.1-8.1)
[2019-03-02 06:49] LABS: B-TYPE NATRIURETIC PEPTIDE 854 PG/ML (0-125); POSITIVE DIFF @See below
[2019-03-02] MEDS: FUROSEMIDE 20 MG INJ IV (06:51)
[2019-03-02] MEDS: PANTOPRAZOLE (EC) 40 MG TAB PO (06:51)
[2019-03-02] MEDS: HYDROCORTISONE 100 MG INJ IV ×3 (06:51→20:08)
[2019-03-02 06:59] LABS: ANION GAP 2 (5-13)
[2019-03-02 07:02] LABS: CARBON DIOXIDE 42 mmol/L (21-31); POTASSIUM 2.6 mmol/L (3.5-5.1)
[2019-03-02] MEDS: BUDESONIDE (NEB) 0.5MG/2ML AMP HHN ×2 (08:02→20:32)
[2019-03-02] MEDS: POTASSIUM CHLORIDE (SR) 20 MEQ TAB PO (08:14)
[2019-03-02] MEDS: FENOFIBRATE 145 MG TAB PO (08:15)
[2019-03-02] MEDS: CYCLOSPORINE 0.05% OPH DROPERETTE BOTH EYES ×2 (08:15→20:07)
[2019-03-02] MEDS: BENAZEPRIL 10 MG TAB PO (08:15)
[2019-03-02] MEDS: SPIRONOLACTONE 25 MG TAB PO (08:16)
[2019-03-02] MEDS: FLUCONAZOLE 200 MG TAB PO (08:16)
[2019-03-02] MEDS: AMLODIPINE 2.5 MG TAB PO (08:16)
[2019-03-02] MEDS: METOPROLOL (XL) 25 MG TAB PO (08:17)
[2019-03-02] MEDS: DOCUSATE SODIUM 10 MG/ML (10ML CUP) PO ×2 (08:18→08:21)
[2019-03-02] MEDS: NICOTINE (7 MG/24 HR) PATCH TRANSDERM (08:19)
[2019-03-02 10:06] LABS: BAND NEUTROPHILS #M 0.8 10^3/ul (0.0-0.6); BAND NEUTROPHILS % (M) 6 % (0-4); LYMPHOCYTES % (M) 14 % (15-51); MONOCYTE #M 1.3 10^3/ul (0.3-0.9); MONOCYTES % (M) 9 % (0-11); MYELOCYTES #M 0.2 10^3/ul (0.0-0.0); MYELOCYTES % (M) 2 % (0-0); PLATELET ESTIMATE NORMAL; POIKILOCYTOSIS 1+ (0-0); POLYCHROMASIA 2+ (0-0); PROMYELOCYTES #M 0.1 10^3/ul (0-0); PROMYELOCYTES % (M) 1 % (0-0); SEGMENTED NEUTROPHILS (M) % 68 % (39-77); SMUDGE%M 1 % (0-0); TOXIC GRANULATION 1+ (0-0)
[2019-03-02] MEDS: DOCUSATE SODIUM 100 MG CAP PO (14:05)
[2019-03-02] MEDS: ATORVASTATIN 40 MG TAB PO (20:07)
[2019-03-02] MEDS: LACTOBACILLUS RHAMNOSUS CAP PO (20:07)
[2019-03-03] MEDS: ALBUTEROL/IPRATROPIUM (NEB) 3 ML AMP HHN ×4 (02:13→20:14)
[2019-03-03] MEDS: FUROSEMIDE 20 MG TAB PO ×2 (05:19→17:28)
[2019-03-03] MEDS: PIPER-TAZO 3.375 GM IV (PMX) 100 ML IVPB ×4 (05:19→23:28)
[2019-03-03] MEDS: HYDROCORTISONE 100 MG INJ IV (05:19)
[2019-03-03] MEDS: PANTOPRAZOLE (EC) 40 MG TAB PO (05:19)
[2019-03-03] MEDS: ACETAMINOPHEN 325 MG TAB PO (05:30)
[2019-03-03 06:31] LABS: ADD MAN DIFF? NO
[2019-03-03 06:39] LABS: WHITE BLOOD COUNT 21.1 10^3/ul (4.8-10.8)
[2019-03-03 06:39] LABS: ABNORMAL IP MESSAGE 1; BASOPHIL # 0.1 10^3/ul (0.0-0.1); BASOPHILS % 0.3 % (0.0-2.0); EOSINOPHILS # 0.2 10^3/ul (0.0-0.5); EOSINOPHILS % 0.7 % (0.0-7.0); HEMATOCRIT 35.5 % (37.0-47.0); HEMOGLOBIN 11.5 g/dl (12.0-16.0); LYMPHOCYTES # 2.4 10^3/ul (0.8-2.9); LYMPHOCYTES % 11.4 % (15.0-51.0); MEAN CORPUSCULAR HEMOGLOBIN 32.7 pg (29.0-33.0); MEAN CORPUSCULAR HGB CONC 32.4 g/dl (32.0-37.0); MEAN CORPUSCULAR VOLUME 100.9 fl (82.0-101.0); MEAN PLATELET VOLUME 9.8 fl (7.4-10.4); MONOCYTE # 1.5 10^3/ul (0.3-0.9); MONOCYTES % 7.3 % (0.0-11.0); NEUTROPHILS % 75.7 % (39.0-77.0); PLATELET COUNT 443 10^3/UL (140-415); RED BLOOD COUNT 3.52 10^6/ul (4.20-5.40); RED CELL DISTRIBUTION WIDTH 13.6 % (11.5-14.5)
[2019-03-03 06:58] LABS: POSITIVE DIFF @See below
[2019-03-03] MEDS: BUDESONIDE (NEB) 0.5MG/2ML AMP HHN ×2 (07:30→20:14)
[2019-03-03] MEDS: LACTOBACILLUS RHAMNOSUS CAP PO ×2 (08:40→19:57)
[2019-03-03] MEDS: SPIRONOLACTONE 25 MG TAB PO (08:40)
[2019-03-03] MEDS: AMLODIPINE 2.5 MG TAB PO (08:40)
[2019-03-03] MEDS: FLUCONAZOLE 200 MG TAB PO (08:41)
[2019-03-03] MEDS: METOPROLOL (XL) 25 MG TAB PO (08:41)
[2019-03-03] MEDS: FENOFIBRATE 145 MG TAB PO (08:41)
[2019-03-03] MEDS: BENAZEPRIL 10 MG TAB PO (08:41)
[2019-03-03] MEDS: DOCUSATE SODIUM 100 MG CAP PO (08:41)
[2019-03-03] MEDS: CYCLOSPORINE 0.05% OPH DROPERETTE BOTH EYES ×2 (08:42→19:56)
[2019-03-03] MEDS: NICOTINE (7 MG/24 HR) PATCH TRANSDERM (08:43)
[2019-03-03 09:05] LABS: MAGNESIUM 1.8 mg/dl (1.7-2.5)
[2019-03-03 10:00] LABS: ANION GAP 4 (5-13); BLOOD UREA NITROGEN 23 mg/dl (7-20); CALCIUM 8.6 mg/dl (8.4-10.2); CARBON DIOXIDE 36 mmol/L (21-31); CHLORIDE 98 mmol/L (97-110); CREATININE 0.94 mg/dl (0.44-1.00); Estimated GFR > 60 mL/min (>60); GLUCOSE 135 mg/dl (70-220); PHOSPHORUS 2.5 mg/dl (2.5-4.9); SODIUM 138 mmol/L (135-144)
[2019-03-03 10:08] LABS: ADD UMIC YES; UR ASCORBIC ACID NEGATIVE (NEGATIVE); UR BILIRUBIN (Dip) NEGATIVE (NEGATIVE); UR BLOOD (Dip) 2+ mg/dL (NEGATIVE); UR CLARITY CLEAR (CLEAR); UR COLOR STRAW (YELLOW); UR GLUCOSE (Dip) NEGATIVE (NEGATIVE); UR KETONES (Dip) NEGATIVE (NEGATIVE); UR LEUKOCYTE ESTERASE (Dip) NEGATIVE Leu/ul (NEGATIVE); UR NITRITE (Dip) NEGATIVE (NEGATIVE); UR RBC 53 /HPF (0-5); UR SPECIFIC GRAVITY (Dip) 1.015 (1.003-1.030); UR SQUAMOUS EPITHELIAL CELL FEW /HPF (FEW); UR TOTAL PROTEIN (Dip) NEGATIVE (NEGATIVE); UR UROBILINOGEN (Dip) NEGATIVE (NEGATIVE); UR WBC 3 /HPF (0-5)
[2019-03-03 10:13] LABS: POTASSIUM 2.7 mmol/L (3.5-5.1)
[2019-03-03] MEDS ORDERED: POTASSIUM CHLORIDE (SR) 20 MEQ TAB PO (10:21)
[2019-03-03] MEDS: predniSONE 20 MG TAB PO (10:23)
[2019-03-03 10:57] LABS: PROCALCITONIN 0.34 ng/mL (0.00-0.10)
[2019-03-03] MEDS: POTASSIUM CHLORIDE (SR) 20 MEQ TAB PO ×2 (11:43→14:05)
[2019-03-03] MEDS: ATORVASTATIN 40 MG TAB PO (19:57)
[2019-03-04] MEDS: ALBUTEROL/IPRATROPIUM (NEB) 3 ML AMP HHN ×4 (01:28→20:49)
[2019-03-04] MEDS: FUROSEMIDE 20 MG TAB PO ×2 (05:52→17:01)
[2019-03-04] MEDS: PANTOPRAZOLE (EC) 40 MG TAB PO (05:52)
[2019-03-04] MEDS: PIPER-TAZO 3.375 GM IV (PMX) 100 ML IVPB ×3 (05:52→17:01)
[2019-03-04 06:20] LABS: ABNORMAL IP MESSAGE 1; HEMATOCRIT 33.8 % (37.0-47.0); HEMOGLOBIN 11.1 g/dl (12.0-16.0); MEAN CORPUSCULAR HEMOGLOBIN 33.1 pg (29.0-33.0); MEAN CORPUSCULAR HGB CONC 32.8 g/dl (32.0-37.0); MEAN CORPUSCULAR VOLUME 100.9 fl (82.0-101.0); MEAN PLATELET VOLUME 9.4 fl (7.4-10.4); PLATELET COUNT 507 10^3/UL (140-415); RED BLOOD COUNT 3.35 10^6/ul (4.20-5.40); RED CELL DISTRIBUTION WIDTH 13.3 % (11.5-14.5)
[2019-03-04 06:20] LABS: WHITE BLOOD COUNT 25.3 10^3/ul (4.8-10.8)
[2019-03-04 06:26] LABS: ADD MAN DIFF? YES; POSITIVE DIFF @See below
[2019-03-04 06:35] LABS: PHOSPHORUS 2.7 mg/dl (2.5-4.9)
[2019-03-04 06:35] LABS: MAGNESIUM 1.9 mg/dl (1.7-2.5)
[2019-03-04 06:38] LABS: ANION GAP 4 (5-13); BLOOD UREA NITROGEN 20 mg/dl (7-20); CALCIUM 8.6 mg/dl (8.4-10.2); CARBON DIOXIDE 32 mmol/L (21-31); CHLORIDE 102 mmol/L (97-110); CREATININE 0.95 mg/dl (0.44-1.00); Estimated GFR > 60 mL/min (>60); GLUCOSE 106 mg/dl (70-220); POTASSIUM 3.2 mmol/L (3.5-5.1); SODIUM 138 mmol/L (135-144)
[2019-03-04] MEDS: BUDESONIDE (NEB) 0.5MG/2ML AMP HHN ×2 (08:37→20:49)
[2019-03-04] MEDS: FENOFIBRATE 145 MG TAB PO (08:49)
[2019-03-04] MEDS: LACTOBACILLUS RHAMNOSUS CAP PO ×2 (08:49→20:14)
[2019-03-04] MEDS: DOCUSATE SODIUM 100 MG CAP PO (08:49)
[2019-03-04] MEDS: predniSONE 20 MG TAB PO (08:50)
[2019-03-04] MEDS: METOPROLOL (XL) 25 MG TAB PO (08:51)
[2019-03-04] MEDS: AMLODIPINE 2.5 MG TAB PO (08:52)
[2019-03-04] MEDS: SPIRONOLACTONE 25 MG TAB PO (08:52)
[2019-03-04] MEDS: FLUCONAZOLE 200 MG TAB PO (08:52)
[2019-03-04] MEDS: BENAZEPRIL 10 MG TAB PO (08:53)
[2019-03-04] MEDS: NICOTINE (7 MG/24 HR) PATCH TRANSDERM (08:53)
[2019-03-04] MEDS: ACETAMINOPHEN 325 MG TAB PO (10:37)
[2019-03-04] MEDS: CYCLOSPORINE 0.05% OPH DROPERETTE BOTH EYES ×2 (10:37→20:15)
[2019-03-04] MEDS: POTASSIUM CHLORIDE (SR) 20 MEQ TAB PO ×2 (10:40→14:19)
[2019-03-04] MEDS: ENOXAPARIN 40 MG/0.4 ML SYG SC (10:47)
[2019-03-04 11:23] LABS: ANISOCYTOSIS 1+ (0-0); BAND NEUTROPHILS % (M) 4 % (0-4); BURR CELLS 1+ (0-0); LYMPHOCYTES #M 2.5 10^3/ul (0.8-2.9); LYMPHOCYTES % (M) 10 % (15-51); MONOCYTE #M 1.2 10^3/ul (0.3-0.9); MONOCYTES % (M) 5 % (0-11); MYELOCYTES #M 0.2 10^3/ul (0.0-0.0); MYELOCYTES % (M) 1 % (0-0); PLATELET ESTIMATE INCREASED; POLYCHROMASIA 3+ (0-0); PROMYELOCYTES #M 0.2 10^3/ul (0-0); PROMYELOCYTES % (M) 1 % (0-0); SEG NEUT #M 20.2 10^3/ul (1.6-7.5); SEGMENTED NEUTROPHILS (M) % 79 % (39-77); SMUDGE%M 5 % (0-0); TOXIC GRANULATION 2+ (0-0)
[2019-03-04] MEDS: ATORVASTATIN 40 MG TAB PO (20:14)
[2019-03-05] MEDS: PIPER-TAZO 3.375 GM IV (PMX) 100 ML IVPB ×5 (00:11→23:27)
[2019-03-05] MEDS: ALBUTEROL/IPRATROPIUM (NEB) 3 ML AMP HHN ×4 (01:55→19:54)
[2019-03-05] MEDS: PANTOPRAZOLE (EC) 40 MG TAB PO (04:42)
[2019-03-05] MEDS: FUROSEMIDE 20 MG TAB PO (04:43)
[2019-03-05 05:03] LABS: ADD MAN DIFF? NO
[2019-03-05 05:09] LABS: BASOPHIL # 0.1 10^3/ul (0.0-0.1); BASOPHILS % 0.5 % (0.0-2.0); EOSINOPHILS # 0.1 10^3/ul (0.0-0.5); EOSINOPHILS % 0.5 % (0.0-7.0); HEMATOCRIT 33.5 % (37.0-47.0); LYMPHOCYTES # 2.3 10^3/ul (0.8-2.9); LYMPHOCYTES % 9.6 % (15.0-51.0); MEAN CORPUSCULAR HGB CONC 32.8 g/dl (32.0-37.0); MEAN CORPUSCULAR VOLUME 100.6 fl (82.0-101.0); MEAN PLATELET VOLUME 9.1 fl (7.4-10.4); MONOCYTE # 1.5 10^3/ul (0.3-0.9); MONOCYTES % 6.2 % (0.0-11.0); NEUTROPHIL # 19.1 10^3/ul (1.6-7.5); NEUTROPHILS % 78.7 % (39.0-77.0); PLATELET COUNT 514 10^3/UL (140-415); RED BLOOD COUNT 3.33 10^6/ul (4.20-5.40); RED CELL DISTRIBUTION WIDTH 13.4 % (11.5-14.5)
[2019-03-05 05:09] LABS: WHITE BLOOD COUNT 24.3 10^3/ul (4.8-10.8)
[2019-03-05 06:15] LABS: MAGNESIUM 1.9 mg/dl (1.7-2.5)
[2019-03-05 06:17] LABS: ALANINE AMINOTRANSFERASE 31 IU/L (13-69); ALBUMIN 2.9 g/dl (3.3-4.9); ALBUMIN/GLOBULIN RATIO 0.96; ALKALINE PHOSPHATASE 55 IU/L (42-121); ANION GAP 4 (5-13); ASPARTATE AMINO TRANSFERASE 24 IU/L (15-46); BILIRUBIN,INDIRECT 0.3 mg/dl (0-1.1); BILIRUBIN,TOTAL 0.3 mg/dl (0.2-1.3); BLOOD UREA NITROGEN 18 mg/dl (7-20); CALCIUM 8.7 mg/dl (8.4-10.2); CARBON DIOXIDE 31 mmol/L (21-31); CHLORIDE 102 mmol/L (97-110); CREATININE 1.05 mg/dl (0.44-1.00); Estimated GFR 54 mL/min (>60); GLUCOSE 121 mg/dl (70-220); POTASSIUM 3.4 mmol/L (3.5-5.1); SODIUM 137 mmol/L (135-144); TOTAL PROTEIN 5.9 g/dl (6.1-8.1)
[2019-03-05] MEDS: SPIRONOLACTONE 25 MG TAB PO (08:22)
[2019-03-05] MEDS: METOPROLOL (XL) 25 MG TAB PO (08:22)
[2019-03-05] MEDS: FLUCONAZOLE 200 MG TAB PO (08:22)
[2019-03-05] MEDS: AMLODIPINE 2.5 MG TAB PO (08:23)
[2019-03-05] MEDS: CYCLOSPORINE 0.05% OPH DROPERETTE BOTH EYES ×2 (08:24→20:19)
[2019-03-05] MEDS: predniSONE 10 MG TAB PO (08:24)
[2019-03-05] MEDS: LACTOBACILLUS RHAMNOSUS CAP PO ×2 (08:24→20:19)
[2019-03-05] MEDS: BENAZEPRIL 10 MG TAB PO (08:25)
[2019-03-05] MEDS: NICOTINE (7 MG/24 HR) PATCH TRANSDERM (08:25)
[2019-03-05] MEDS: FENOFIBRATE 145 MG TAB PO (08:25)
[2019-03-05] MEDS: POTASSIUM CHLORIDE (SR) 20 MEQ TAB PO (08:25)
[2019-03-05] MEDS: BUDESONIDE (NEB) 0.5MG/2ML AMP HHN ×2 (08:30→19:54)
[2019-03-05] MEDS: DOCUSATE SODIUM 100 MG CAP PO (08:31)
[2019-03-05] MEDS: ENOXAPARIN 40 MG/0.4 ML SYG SC (08:45)
[2019-03-05 15:31] LABS: LIPASE 4791 U/L (23-300)
[2019-03-05] MEDS: ATORVASTATIN 40 MG TAB PO (20:19)
[2019-03-06] MEDS: ALBUTEROL/IPRATROPIUM (NEB) 3 ML AMP HHN ×4 (01:12→19:55)
[2019-03-06] MEDS: PANTOPRAZOLE (EC) 40 MG TAB PO (05:23)
[2019-03-06] MEDS: PIPER-TAZO 3.375 GM IV (PMX) 100 ML IVPB ×3 (05:23→18:10)
[2019-03-06] MEDS: BUDESONIDE (NEB) 0.5MG/2ML AMP HHN ×2 (08:18→20:01)
[2019-03-06] MEDS: NICOTINE (7 MG/24 HR) PATCH TRANSDERM (09:00)
[2019-03-06] MEDS: FENOFIBRATE 145 MG TAB PO (09:04)
[2019-03-06] MEDS: POTASSIUM CHLORIDE (SR) 20 MEQ TAB PO (09:05)
[2019-03-06] MEDS: FLUCONAZOLE 200 MG TAB PO (09:06)
[2019-03-06] MEDS: SPIRONOLACTONE 25 MG TAB PO (09:08)
[2019-03-06] MEDS: BENAZEPRIL 10 MG TAB PO (09:08)
[2019-03-06] MEDS: LACTOBACILLUS RHAMNOSUS CAP PO ×2 (09:08→20:18)
[2019-03-06] MEDS: AMLODIPINE 2.5 MG TAB PO (09:09)
[2019-03-06] MEDS: FUROSEMIDE 20 MG TAB PO (09:09)
[2019-03-06] MEDS: METOPROLOL (XL) 25 MG TAB PO (09:09)
[2019-03-06] MEDS: DOCUSATE SODIUM 100 MG CAP PO (09:09)
[2019-03-06] MEDS: ENOXAPARIN 40 MG/0.4 ML SYG SC (09:16)
[2019-03-06] MEDS: predniSONE 10 MG TAB PO (09:23)
[2019-03-06 10:16] LABS: ADD MAN DIFF? NO
[2019-03-06 10:18] LABS: ABNORMAL IP MESSAGE 1; BASOPHIL # 0.1 10^3/ul (0.0-0.1); BASOPHILS % 0.5 % (0.0-2.0); EOSINOPHILS # 0.1 10^3/ul (0.0-0.5); EOSINOPHILS % 0.5 % (0.0-7.0); HEMATOCRIT 36.9 % (37.0-47.0); HEMOGLOBIN 12.2 g/dl (12.0-16.0); LYMPHOCYTES # 2.6 10^3/ul (0.8-2.9); LYMPHOCYTES % 10.9 % (15.0-51.0); MEAN CORPUSCULAR HEMOGLOBIN 32.8 pg (29.0-33.0); MEAN CORPUSCULAR HGB CONC 33.1 g/dl (32.0-37.0); MEAN CORPUSCULAR VOLUME 99.2 fl (82.0-101.0); MONOCYTE # 1.6 10^3/ul (0.3-0.9); MONOCYTES % 6.5 % (0.0-11.0); NEUTROPHIL # 18.6 10^3/ul (1.6-7.5); NEUTROPHILS % 77.3 % (39.0-77.0); PLATELET COUNT 625 10^3/UL (140-415); RED BLOOD COUNT 3.72 10^6/ul (4.20-5.40); RED CELL DISTRIBUTION WIDTH 13.3 % (11.5-14.5)
[2019-03-06 10:19] LABS: POSITIVE DIFF @See below
[2019-03-06 10:34] LABS: ALBUMIN 3.3 g/dl (3.3-4.9); ANION GAP 7 (5-13); BLOOD UREA NITROGEN 19 mg/dl (7-20); CALCIUM 9.5 mg/dl (8.4-10.2); CARBON DIOXIDE 29 mmol/L (21-31); CHLORIDE 101 mmol/L (97-110); CREATININE 1.28 mg/dl (0.44-1.00); GLUCOSE 122 mg/dl (70-220); PHOSPHORUS 3.1 mg/dl (2.5-4.9); POTASSIUM 4.1 mmol/L (3.5-5.1); SODIUM 137 mmol/L (135-144)
[2019-03-06 11:34] LABS: LIPASE 5758 U/L (23-300)
[2019-03-06] MEDS: CYCLOSPORINE 0.05% OPH DROPERETTE BOTH EYES ×2 (12:49→20:23)
[2019-03-06] MEDS: SOD CHLORIDE 0.9% 250 ML IV (14:00)
[2019-03-07] MEDS: ALBUTEROL/IPRATROPIUM (NEB) 3 ML AMP HHN ×3 (01:31→13:08)
[2019-03-07] MEDS: PANTOPRAZOLE (EC) 40 MG TAB PO (05:38)
[2019-03-07 05:47] LABS: ADD MAN DIFF? NO
[2019-03-07 06:00] LABS: ABNORMAL IP MESSAGE 1; BASOPHIL # 0.1 10^3/ul (0.0-0.1); BASOPHILS % 0.5 % (0.0-2.0); EOSINOPHILS # 0.1 10^3/ul (0.0-0.5); EOSINOPHILS % 0.3 % (0.0-7.0); HEMATOCRIT 35.4 % (37.0-47.0); HEMOGLOBIN 11.6 g/dl (12.0-16.0); LYMPHOCYTES # 2.6 10^3/ul (0.8-2.9); LYMPHOCYTES % 11.1 % (15.0-51.0); MEAN CORPUSCULAR HEMOGLOBIN 33.1 pg (29.0-33.0); MEAN CORPUSCULAR HGB CONC 32.8 g/dl (32.0-37.0); MEAN CORPUSCULAR VOLUME 101.1 fl (82.0-101.0); MEAN PLATELET VOLUME 9.3 fl (7.4-10.4); MONOCYTE # 1.7 10^3/ul (0.3-0.9); MONOCYTES % 7.3 % (0.0-11.0); NEUTROPHIL # 17.5 10^3/ul (1.6-7.5); NEUTROPHILS % 76.4 % (39.0-77.0); PLATELET COUNT 609 10^3/UL (140-415); RED CELL DISTRIBUTION WIDTH 13.4 % (11.5-14.5)
[2019-03-07 06:12] LABS: POSITIVE DIFF @See below
[2019-03-07 06:33] LABS: ALBUMIN 3.1 g/dl (3.3-4.9); ANION GAP 6 (5-13); BLOOD UREA NITROGEN 18 mg/dl (7-20); CALCIUM 9.4 mg/dl (8.4-10.2); CARBON DIOXIDE 31 mmol/L (21-31); CHLORIDE 100 mmol/L (97-110); CREATININE 1.19 mg/dl (0.44-1.00); GLUCOSE 94 mg/dl (70-220); MAGNESIUM 2.1 mg/dl (1.7-2.5); PHOSPHORUS 3.8 mg/dl (2.5-4.9); POTASSIUM 4.1 mmol/L (3.5-5.1); SODIUM 137 mmol/L (135-144)
[2019-03-07 07:21] LABS: LIPASE 3869 U/L (23-300)
[2019-03-07] MEDS: BUDESONIDE (NEB) 0.5MG/2ML AMP HHN (08:41)
[2019-03-07] MEDS: NICOTINE (7 MG/24 HR) PATCH TRANSDERM (09:00)
[2019-03-07] MEDS: CYCLOSPORINE 0.05% OPH DROPERETTE BOTH EYES (09:46)
[2019-03-07] MEDS: LACTOBACILLUS RHAMNOSUS CAP PO (09:47)
[2019-03-07] MEDS: DOCUSATE SODIUM 100 MG CAP PO (09:47)
[2019-03-07] MEDS: FLUCONAZOLE 200 MG TAB PO (09:48)
[2019-03-07] MEDS: MULTIVITAMINS THERAPEUTIC TAB PO (09:49)
[2019-03-07] MEDS: POTASSIUM CHLORIDE (SR) 20 MEQ TAB PO (09:49)
[2019-03-07] MEDS: FUROSEMIDE 20 MG TAB PO (09:49)
[2019-03-07] MEDS: predniSONE 20 MG TAB PO (09:49)
[2019-03-07] MEDS: FENOFIBRATE 145 MG TAB PO (09:50)
[2019-03-07] MEDS: METOPROLOL (XL) 25 MG TAB PO (09:50)
[2019-03-07] MEDS: ENOXAPARIN 40 MG/0.4 ML SYG SC (10:18)
[2019-03-07] MEDS ORDERED: HYDROGEN PEROXIDE 118 ML (10:54)
[2019-03-07] MEDS ORDERED: DEXTROSE 50% 50 ML SYRINGE ×2 (12:59→13:44)
== END 2019-03-07 14:00 | disposition home health service (06) | DRG 853 ==
LOC: MS1 02-23 22:30 → E/R 07:47 → 6WM 02-28 16:20 → ICU 02-25 18:37 → PP2 09:56
PROVIDERS: Family Medicine
PROC: 0DTN0ZZ Resection of Sigmoid Colon, Open Approach (ICD-10-PCS; principal; 2019-02-24 16:59)
PROC: 0D1N0Z4 Bypass Sigmoid Colon to Cutaneous, Open Approach (ICD-10-PCS; 2019-02-24 16:59)
PROC: 0W993ZZ Drainage of Right Pleural Cavity, Percutaneous Approach (ICD-10-PCS; 2019-02-24 16:59)
DX: A41.9 Sepsis, unspecified organism (principal); J96.01 Acute respiratory failure with hypoxia; G93.41 Metabolic encephalopathy; I50.33 Acute on chronic diastolic (congestive) heart failure; J18.9 Pneumonia, unspecified organism; K85.91 Acute pancreatitis with uninfected necrosis, unspecified; K57.20 Diverticulitis of large intestine with perforation and abscess without bleeding; E87.2 Acidosis; J90 Pleural effusion, not elsewhere classified; N17.9 Acute kidney failure, unspecified; R65.20 Severe sepsis without septic shock; I11.0 Hypertensive heart disease with heart failure; E87.6 Hypokalemia; E83.42 Hypomagnesemia; D86.0 Sarcoidosis of lung; E86.0 Dehydration
CPT/HCPCS: 32555; 36415; 36600; 71045; 71250; 74176; 80048; 80053; 80061; 80069; 81001; 81003; 82607; 82746; 82803; 82945; 83036; 83605; 83615; 83690; 83735; 83880; 84100; 84145; 84157; 84443; 84484; 84703; 85014; 85018; 85025; 85049; 85610; 85670; 85730; 87040-91; 87045; 87070; 87081; 87086; 87102; 87116; 87177; 88104; 88304; 88305; 89051; 93005; 93306; 94640; 94664; 94667; 94668; 96365; 96375; 97116; 97163; 97530; 99285-25